=== PATIENT | female | born 1985 | race African-American/Black ===

== ENCOUNTER 2020-02-17 13:37 | Outpatient (CLI) | payer OTHER, SELFPAY ==
--- NOTE | ~2020-02-17 | MR_ITS ---
EXAMINATION: MR lumbar spine wo con DATE: 02/17/2020 14:51 INDICATION: Lumbago. TECHNIQUE: Magnetic resonance imaging (MRI) of the lumbar spine was performed without intravenous con trast. Sequences included sagittal T2-weighted FSE, sagittal T2-weighted FS FSE, sagittal T1-weighted FSE, and axial T2-weighted FSE. COMPARISON: None FINDINGS: There is 10 degrees dextroscoliosis of thoracolumbar spine. Vertebral body heights and inte rvertebral disc heights are normal. There is a hemangioma in L3 vertebral body. The distal spinal cor d signal intensity is normal. The conus medullaris is at T12-L1. The following disc levels are specif ically discussed: L1-L2: The disc does not extend beyond the endplate margin. There is mild bilateral facet joint osteo arthritis. There is no neural foraminal stenosis. There is no central canal stenosis. L2-L3: The disc does not extend beyond the endplate margin. There is mild bilateral facet joint osteo arthritis. There is no neural foraminal stenosis. There is no central canal stenosis. L3-L4: The disc does not extend beyond the endplate margin. There is mild bilateral facet joint osteo arthritis. There is no neural foraminal stenosis. There is no central canal stenosis. L4-L5: The disc is mildly bulging. There is mild bilateral facet joint osteoarthritis. There is mild bilateral neural foraminal stenosis. There is no central canal stenosis. L5-S1: There is a broad-based central protrusion. There is mild bilateral facet joint osteoarthritis. There is no neural foraminal stenosis. There is mild central canal stenosis. IMPRESSION: 1. Mild lumbar spondylosis. 2. Thoracolumbar dextroscoliosis. Reviewed, dictated and finalized at location A.
--- NOTE | ~2020-02-17 | MR_ITS ---
EXAMINATION: MR thoracic spine wo con DATE: 02/17/2020 14:51 INDICATION: Thoracic back pain. TECHNIQUE: Magnetic resonance imaging (MRI) of the thoracic spine was performed without intravenous c ontrast. Sagittal localizer T1-weighted FSE of the cervical spine was obtained. Thoracic spine sequen peyton included sagittal T2-weighted FSE, sagittal T1-weighted FSE, sagittal T2-weighted FS FSE, and axi al T2-weighted FSE. COMPARISON: None FINDINGS: There is 10 degrees dextroscoliosis of thoracolumbar spine. There is 5 degrees levocurvatur e of thoracic spine. Vertebral body heights are normal. There is mildly decreased disc height at T9-T 10. There is multilevel mild facet joint osteoarthritis. There is mild neural foraminal stenosis on t he left at T1-T2. The discs do not extend beyond the endplate margins. No central canal stenosis. The spinal cord signal intensity is normal. IMPRESSION: 1. Mild thoracic spondylosis. 2. Thoracolumbar dextroscoliosis. Reviewed, dictated and finalized at location A.
== END 2020-02-17 13:38 | disposition home or self-care (01) ==
PROVIDERS: Visit Provider Nurse Practitioner Adult Health
DX: M47.894 Other spondylosis, thoracic region (principal); M47.896 Other spondylosis, lumbar region
CPT/HCPCS: 72146; 72148